=== PATIENT | female | born 1980 | race Caucasian/White ===

== ENCOUNTER 2016-09-21 20:57 | Emergency (ER) | payer OTHER ==
[2016-09-21 20:59] VITALS: BMI 35.4
[2016-09-21 21:07] VITALS: TEMP 98.3
--- NOTE | 2016-09-21 21:27 | ED PDOC ---
Arrival/HPI <Attila Hudson - Last Filed: 09/21/16 23:39> - General Historian: Patient - History of Present Illness Time/Duration: Prior to Arrival Symptom Course: Unchanged Context: Home <Lucy Cota - Last Filed: 09/22/16 03:52> - General Chief Complaint: Chest Pain Time Seen by Provider: 09/21/16 20:57 - History of Present Illness Narrative History of Present Illness (Text): 09/21/16 21:22 36 yo female with recent presented to ED with chest pain. Patient states she was out in a store when she began to feel chest tightness, difficulty breathing and increased heart beat that radiated throughout her body. Patient states that she called ems and come directly to hospital within 30 minutes of onset. Patient recently had 5 days ago and was discharged yesterday. Patient states that she had previous episode many years ago adn was given an injection in the hospital, she does not recall if anything else was done. She reports pain in her abdomen at incision site and swelling of her lower extremities. PMD: none (Lucy Cota) Past Medical History - Provider Review Nursing Documentation Reviewed: Yes - Cardiac Hx Cardiac Disorders: Yes Hx Hypertension: Yes - Psychiatric Hx Substance Use: No - Surgical History Hx Section: Yes <CiprianoLucy - Last Filed: 09/22/16 03:52> Family/Social History - Physician Review Nursing Documentation Reviewed: Yes Family/Social History: No Known Family HX Smoking Status: Former Smoker Hx Alcohol Use: No Hx Substance Use: No <Lucy Cota - Last Filed: 09/22/16 03:52> Allergies/Home Meds <Attila Hudson - Last Filed: 09/21/16 23:39> <CiprianoLucy - Last Filed: 09/22/16 03:52> Allergies/Adverse Reactions: Allergies No Known Allergies Allergy (Verified 09/21/16 20:59) Home Medications: Home Meds Medication Instructions Recorded Confirmed Multivitamin [Multivitamins] 1 each PO DAILY 09/21/16 09/21/16 Review of Systems - Review of Systems Constitutional: Normal. absent: Fatigue, Fevers Eyes: Normal ENT: Normal. absent: Sore Throat, Rhinorrhea, Sinus Congestion Respiratory: SOB. absent: Cough Cardiovascular: Chest Pain, Palpitations, Edema. absent: Calf Pain Gastrointestinal: Abdominal Pain. absent: Constipation, Diarrhea, Nausea, Vomiting Genitourinary Female: Normal. absent: Dysuria, Frequency, Hematuria Musculoskeletal: Normal. absent: Arthralgias Skin: Normal. absent: Rash, Pruritis Neurological: Normal Endocrine: Normal. absent: Diaphoresis Hemo/Lymphatic: Normal. absent: Easy Bleeding, Easy Bruising Psychiatric: Normal <CiprianoTitoa - Last Filed: 09/22/16 03:52> Physical Exam Vital Signs Reviewed: Yes Temperature: Afebrile Blood Pressure: Hypertensive Pulse: Tachycardic Respiratory Rate: Normal Appearance: Positive for: Well-Appearing, Non-Toxic, Comfortable Pain Distress: None Mental Status: Positive for: Alert and Oriented X 3 <Attila Hudson - Last Filed: 09/21/16 23:39> - Systems Exam Head: Present: Atraumatic, Normocephalic Pupils: Present: PERRL Extroacular Muscles: Present: EOMI Conjunctiva: Present: Normal Mouth: Present: Moist Mucous Membranes Neck: Present: Normal Range of Motion Respiratory/Chest: Present: Clear to Auscultation, Good Air Exchange. No: Respiratory Distress, Accessory Muscle Use, Wheezes, Rales, Rhonchi, Tachypneic Cardiovascular: Present: Regular Rate and Rhythm, Normal S1, S2, Tachycardic. No: Murmurs Abdomen: Present: Tenderness (diffuse, greater at incision site), Normal Bowel Sounds. No: Distention, Peritoneal Signs Upper Extremity: Present: Normal Inspection. No: Cyanosis, Edema Lower Extremity: Present: Normal Inspection, Edema. No: CALF TENDERNESS Neurological: Present: GCS=15, CN II-XII Intact, Speech Normal Skin: Present: Warm, Dry, Normal Color. No: Rashes Psychiatric: Present: Alert, Oriented x 3, Normal Insight, Normal Concentration <Tito Cotaa - Last Filed: 09/22/16 03:52> Vital Signs Temp Pulse Resp BP Pulse Ox 09/21/16 23:42 98 H 16 139/82 97 09/21/16 22:30 110 H 18 142/71 98 09/21/16 22:00 109 H 97 H 147/97 H 20 L 09/21/16 21:30 111 H 16 146/96 H 97 09/21/16 21:10 110 H 20 179/96 H 97 09/21/16 21:00 98.3 F 224 H 26 H 179/138 H 99 Medical Decision Making <Attila Hudson - Last Filed: 09/21/16 23:39> - EKG Interpretation Interpreted by ED Physician: Yes Type: 12 lead EKG <Lucy Cota - Last Filed: 09/22/16 03:52> ED Course and Treatment: Patient Seen With Resident: In agreement with resident note which contains more details about the patient. Patient was seen and evaluated with resident. Came up with plan and treatment together. A 36 year old female who presents to the emergency department complaining of chest pain and palpitations beginning 30 minutes prior to arrival. Upon arrival , patient was in SVT @ 200 bpm. SVT broken with adenosine. Labs, EKG, cardiac enzymes, and CTA ordered to r/o SVT arrhythmia vs. PE. 09/21/16 23:38 CT Angiography Chest With Intravenous Contrast FINDINGS: Limitations: Motion artifact - mild. Pulmonary arteries: No definite pulmonary embolism. Aorta: No aneurysm. No dissection. Lungs: Minimal atelectasis/scarring. No consolidation. Pleural space: No significant effusion. No pneumothorax. Heart: Mild cardiomegaly. No significant pericardial effusion. Thyroid: Subcentimeter cyst or nodule LEFT lobe of thyroid. Bones/joints: No acute fracture. No dislocation. Soft tissues: Unremarkable. Lymph nodes: No pathologically enlarged lymph nodes. IMPRESSION: 1. No definite CT evidence of pulmonary embolism. 2. Incidental/non-acute findings are described above. On re-evaluation, patient feels better and is in no acute distress. I have discussed the results and plan with the patient, who expresses understanding. Patient in agreement with plan to be discharged home. Patient is stable for discharge. Patient was instructed to follow up with physician or return if symptoms worsen or new concerning symptoms arise. (Attila Hudson) 09/21/16 21:30 Impression: 36 yo female with recent presented to ED with chest pain and palpitations. Differential diagnoses includes but not limited to: SVT arrhythmia, PE Plan: - adenosine - EKG - CBC, CMP - cardiac iso - CTA - patient was given adenosine, heart rate decreased from 211 to 109. - EKG before adenosine showed rate 211, SVT, nonspecific ST changes - EKG after adenosine showed rate 109, sinus tachy, no ST changes 09/21/16 23:23 - patient is feeling better, she is no longer feeling palpitations. - CTA showed no definite CT evidence of pulmonary embolism. 09/21/16 23:30 - Results of blood work and CTA were discussed with patient. She would like to be discharged home. Will hold off on any medications due to breast feeding. Patient is to follow up with PMD and balance weigher. Discharge plan was discussed with patient, she is in agreement. All questions answered. (Lucy Cota) - Lab Interpretations Lab Results: 09/21/16 21:00 09/21/16 21:00 Lab Results 09/21/16 21:00: Sodium 138, Potassium 4.0, Chloride 102, Carbon Dioxide 26, Anion Gap 14, BUN 15, Creatinine 0.6, Est GFR ( Amer) > 60, Est GFR (Non- Af Amer) > 60, Random Glucose 93, Calcium 9.5, Total Bilirubin 0.4, AST 46 H, ALT 43, Alkaline Phosphatase 123, Lactate Dehydrogenase 630, Total Creatine Kinase 84, Troponin I 0.01, Total Protein 7.4, Albumin 3.7, Globulin 3.6, Albumin/Globulin Ratio 1.0 L 09/21/16 21:00: PT 10.6, INR 0.98, APTT 26.8 09/21/16 21:00: WBC 11.6 H, RBC 3.62, Hgb 9.6 L, Hct 29.9 L, MCV 82.6, MCH 26.5 , MCHC 32.1, RDW 15.1 H, Plt Count 271, MPV 10.6, Gran % 64.6, Lymph % (Auto) 26.9, Mellette % (Auto) 6.2 H, Eos % (Auto) 2.0, Baso % (Auto) 0.3, Gran # 7.49 H, Lymph # 3.1, Mellette # 0.7 H, Eos # 0.2, Baso # 0.03 - RAD Interpretation Radiology Orders: 09/21/16 21:35 ANGIO CHEST PE PROTOCOL [CT] Stat - EKG Interpretation EKG Interpretation (Text): 09/21/16 21:34 - EKG before adenosine showed rate 211, SVT, nonspecific ST changes - EKG after adenosine showed rate 109, sinus tachy, no ST changes (Lucy Cota ) - Medication Orders Current Medication Orders: Discontinued Medications Adenosine (Adenosine 6 Mg/2 Ml Inj) Confirm Administered Dose 12 mg .ROUTE .STK- MED ONE Stop: 09/21/16 21:02 Last Admin: 09/21/16 21:04 Dose: 6 mg Comments: 6 mg adm IVP for SVT as per verbal order from Dr. Hudson - PA / FREIGHT [employer]LOADER / Resident Statement MD/DO has reviewed & agrees with the documentation as recorded. MD/DO has examined the patient and agrees with the treatment plan. <Attila Hudson - Last Filed: 09/21/16 23:39> <Lucy Cota - Last Filed: 09/22/16 03:52> - Scribe Statement Steven Fitch Provider Scribe Attestation: All medical record entries made by the Scribe were at my direction and personally dictated by me. I have reviewed the chart and agree that the record accurately reflects my personal performance of the history, physical exam, medical decision making, and the department course for this patient. I have also personally directed, reviewed, and agree with the discharge instructions and disposition. (Attila Hudson) Disposition/Present on Arrival <Attila Hudson - Last Filed: 09/21/16 23:39> - Present on Arrival Any Indicators Present on Arrival: No History of DVT/PE: No History of Uncontrolled Diabetes: No Urinary Catheter: No History of Decub. Ulcer: No History Surgical Site Infection Following: None - Disposition Have Diagnosis and Disposition been Completed?: Yes Disposition Time: 23:28 <Lucy Cota - Last Filed: 09/22/16 03:52> - Disposition Diagnosis: SVT (supraventricular tachycardia) Disposition: HOME/ ROUTINE Condition: GOOD Discharge Instructions (ExitCare): Supraventricular Tachycardia (ED) Additional Instructions: Belen Pineda, thank you for letting us take care of you today. Your provider was Dr. Cota and Dr. Hudson. You were treated for SVT arrhythmia. The emergency medical care you received today was directed at your acute symptoms. If you were prescribed any medication, please fill it and take as directed. It may take several days for your symptoms to resolve. Return to the Emergency Department if your symptoms worsen, do not improve, or if you have any other problems. Please contact your doctor or call one of the physicians/clinics you have been referred to that are listed on the Patient Visit Information form that is included in your discharge packet. Bring any paperwork you were given at discharge with you along with any medications you are taking to your follow up visit. Our treatment cannot replace ongoing medical care by a primary care provider (PCP) outside of the emergency department. Thank you for allowing the [facility] team to be part of your care today. Ref[place]: [facility] [place] - Follow up with primary Meño Brar MD [Staff Provider] - Follow up with primary
[2016-09-21 21:31] LABS: ADD MANUAL DIFF? NO
[2016-09-21 21:45] LABS: BASO # 0.03 K/mm3 (0.0-2.0); BASO % 0.3 % (0.0-3.0); EOS # 0.2 (0.0-0.7); GRAN # 7.49 (1.4-6.5); GRAN % 64.6 % (50.0-68.0); HEMATOCRIT 29.9 % (36.0-48.0); LYMPH # 3.1 (1.2-3.4); LYMPH % 26.9 % (22.0-35.0); MEAN CELL VOLUME 82.6 fL (80.0-105.0); MEAN CORPUSCULAR HEMOGLOBIN 26.5 pg (25.0-35.0); MEAN CORPUSCULAR HGB CONC 32.1 g/dl (31.0-37.0); MEAN PLATELET VOLUME 10.6 fl (7.0-11.0); MONO # 0.7 (0.1-0.6); MONO % 6.2 % (1.0-6.0); PLATELET COUNT 271 10^3/uL (120.0-450.0); RED CELL DISTRIBUTION WIDTH 15.1 % (11.5-14.5); WHITE BLOOD COUNT 11.6 10^3/ul (4.5-11.0)
[2016-09-21 21:48] LABS: INR 0.98 (0.93-1.08); PARTIAL THROMBOPLASTIN TIME 26.8 Seconds (23.7-30.8)
[2016-09-21 22:15] LABS: BILIRUBIN,TOTAL 0.4 mg/dL (0.2-1.3); BLOOD UREA NITROGEN 15 mg/dL (7-21); CARBON DIOXIDE 26 mmol/L (21-33); CHLORIDE 102 mmol/L (98-107); GFR AFRICAN-AMERICAN > 60; GLUCOSE,RANDOM 93 mg/dL (70-110)
[2016-09-21 22:25] LABS: ALKALINE PHOSPHATASE 123 U/L (38-133); ALT/SGPT 43 U/L (7-56); AST/SGOT 46 U/L (15-39); CALCIUM 9.5 mg/dL (8.4-10.5); SODIUM 138 mmol/L (132-148); TOTAL PROTEIN 7.4 g/dL (5.8-8.3)
[2016-09-21 22:37] LABS: TROPONIN I 0.01 ng/mL
--- NOTE | 2016-09-21 23:20 | CT ---
EXAM: CT Angiography Chest With Intravenous Contrast CLINICAL HISTORY: 36 years old, female; Pain and signs and symptoms; Shortness of breath; Chest pain; Type not specified; Additional info: Svt with SOB TECHNIQUE: Axial computed tomographic angiography images of the chest with intravenous contrast using pulmonary embolism protocol. This CT exam was performed using one or more of the following dose reduction techniques: automated exposure control, adjustment of the mA and/or kV according to patient size, and/or use of iterative reconstruction technique. MIP reconstructed images were created and reviewed. Coronal and sagittal reformatted images were created and reviewed. CONTRAST: 100 mL of OMNI 350 administered intravenously. COMPARISON: No relevant prior studies available. FINDINGS: Limitations: Motion artifact - mild. Pulmonary arteries: No definite pulmonary embolism. Aorta: No aneurysm. No dissection. Lungs: Minimal atelectasis/scarring. No consolidation. Pleural space: No significant effusion. No pneumothorax. Heart: Mild cardiomegaly. No significant pericardial effusion. Thyroid: Subcentimeter cyst or nodule LEFT lobe of thyroid. Bones/joints: No acute fracture. No dislocation. Soft tissues: Unremarkable. Lymph nodes: No pathologically enlarged lymph nodes. IMPRESSION: 1. No definite CT evidence of pulmonary embolism. 2. Incidental/non-acute findings are described above.
[2016-09-21 23:43] VITALS: BP 139/82; PULSE 98; RESP 16; O2SAT 97
--- NOTE | 2016-09-22 16:01 | CARD ---
APPROVED REPORT EKG Measurement Heart [id number] <Conclusion> Sinus tachycardia Otherwise normal ECG
--- NOTE | 2016-09-22 16:02 | CARD ---
APPROVED REPORT EKG Measurement Heart [id number] <Conclusion> Supraventricular tachycardia , consider AV Nancie re-entry Nonspecific ST and T wave abnormality Abnormal ECG
== END 2016-09-21 23:55 | disposition home or self-care (01) ==
LOC: ED 20:57
DX: I47.1 Supraventricular tachycardia (principal); I10 Essential (primary) hypertension; Z87.891 Personal history of nicotine dependence
CPT/HCPCS: 71275; 80053; 82550; 83615; 84484; 85025; 85610; 85730; 93005; 99284; J0153